=== PATIENT | male | born 1960 | race Caucasian/White ===

== ENCOUNTER → 2022-12-08 | Outpatient (CLI) | payer BC ==
[2022-12-08 16:09] LABS: BASOPHILS % (AUTO) 1 % (0-10); EOSINOPHILS # (AUTO) 0.1 10^3/uL (0.0-0.3); EOSINOPHILS % (AUTO) 1 % (0-10); HEMATOCRIT 41 % (40-54); HEMOGLOBIN 13.6 g/dL (13.3-17.7); LYMPHOCYTES # (AUTO) 1.5 10^3/uL (1.0-4.0); LYMPHOCYTES % (AUTO) 23 % (12-44); MEAN CORPUSCULAR HEMOGLOBIN 29 pg (25-34); MEAN CORPUSCULAR HGB CONC 34 g/dL (32-36); MEAN CORPUSCULAR VOLUME 86 fL (80-99); MEAN PLATELET VOLUME 10.6 fL (9.0-12.2); MONOCYTES # (AUTO) 0.6 10^3/uL (0.0-1.0); MONOCYTES % (AUTO) 9 % (0-12); NEUTROPHILS # (AUTO) 4.1 10^3/uL (1.8-7.8); NEUTROPHILS % (AUTO) 65 % (42-75); PLATELET COUNT 245 10^3/uL (130-400); WHITE BLOOD COUNT 6.3 10^3/uL (4.3-11.0)
[2022-12-08 16:13] LABS: ALBUMIN 4.3 GM/DL (3.2-4.5); CHLORIDE 105 MMOL/L (98-107); POTASSIUM 4.2 MMOL/L (3.6-5.0); SODIUM 139 MMOL/L (135-145)
[2022-12-08 16:14] LABS: CALCIUM 9.5 MG/DL (8.5-10.1)
[2022-12-08 16:15] LABS: GLUCOSE 113 MG/DL (70-105)
[2022-12-08 16:16] LABS: TOTAL PROTEIN 7.7 GM/DL (6.4-8.2)
[2022-12-08 16:17] LABS: BILIRUBIN,TOTAL 0.3 MG/DL (0.1-1.0); CARBON DIOXIDE 26 MMOL/L (21-32)
[2022-12-08 16:19] LABS: ALKALINE PHOSPHATASE 80 U/L (40-136); CREATININE SERUM 0.94 MG/DL (0.60-1.30); GFR ESTIMATED 91
[2022-12-08 16:20] LABS: BUN/CREATININE RATIO 16
[2022-12-08 16:22] LABS: ALANINE AMINOTRANSFERASE 26 U/L (0-55); CREATINE KINASE 164 U/L (30-200)
[2022-12-08 16:44] LABS: FREE T4 (FREE THYROXINE) 0.86 NG/DL (0.70-1.48)
== END ==
LOC: LAB 15:47
PROVIDERS: ATTEND Nurse Practitioner Family
DX: Z12.5 Encounter for screening for malignant neoplasm of prostate (principal); R42 Dizziness and giddiness; R07.9 Chest pain, unspecified
CPT/HCPCS: 36415; 80053; 82550; 84153; 84439; 84443; 84484; 85025; 93005

== ENCOUNTER 2023-01-06 10:47 | Outpatient (CLI) | payer BC ==
[~2023-01-06] VITALS: Ht 177.8 cm; Wt 69.0 kg
[2023-01-06] MEDS ORDERED: MULT-1136 PO (14:22)
[2023-01-06] MEDS ORDERED: QUIN324C4 PO (14:22)
== END 2023-01-06 14:29 | disposition home or self-care (01) ==
LOC: PREOP 10:47
PROVIDERS: ATTEND Surgery
DX: Z01.818 Encounter for other preprocedural examination (principal)

== ENCOUNTER 2023-01-13 12:53 | Day surgery (SDC) | payer BC ==
[~2023-01-13] VITALS: Ht 177.8 cm; Wt 69.0 kg
[2023-01-13] VITALS (7 sets, daily range): BP systolic 85–108; BP diastolic 50–75
[~2023-01-13 12:53] MED LIST: MULT-1136 PO; QUIN324C4 PO
[2023-01-13] MEDS ORDERED: LACTATED RINGERS 1,000 ML 1,000 ML IV STA (12:57)
[2023-01-13] MEDS ORDERED: HURRICAINE EXT TUBE (BENZOCAINE) XX PRN (13:00)
[2023-01-13] MEDS ORDERED: LIDOCAINE JELLY 2% 6 ML SYRINGE MM PRN (13:00)
--- NOTE | 2023-01-13 13:04 | Progress Note-Pre Operative ---
Pre-Operative Progress Note Date of Available H&P: Jan 13, 2023 Date H&P Reviewed: Jan 13, 2023 Time H&P Reviewed: 13:00 History & Physical: No changes noted Pre-Operative Diagnosis: GERD, cough, screening GUICHO CABRERA MD Jan 13, 2023 13:04
--- NOTE | 2023-01-13 13:05 | Discharge Inst-Surgical ---
D/C Lap Instructions-DEBORAH Follow Up Activity as tolerated High Fiber Diet 25g or more per day Avoid Alcohol, Caffeine, Spicy [place] and Acid foods. Drink 64 fluid oz or more of fluids per day. Symptoms to Report: Fever over 101 degree F, Nausea/Vomiting If any problems/questions: Contact your physician or go to Emergency Room GUICHO CABRERA MD Jan 13, 2023 13:05
[2023-01-13] MEDS ORDERED: ONDANSETRON 4 MG ORAL DISSOLVE TABLET PO PRN (13:15)
[2023-01-13] MEDS ORDERED: ONDANSETRON INJECTION 4 MG/2 ML (SDV) IVP PRN (13:15)
[2023-01-13] MEDS ORDERED: LIDOCAINE JELLY 2% 6 ML SYRINGE ONE (13:18)
[2023-01-13] MEDS ORDERED: MIDAZOLAM INJ 2 MG/2 ML VIAL ONE (14:24)
--- NOTE | 2023-01-13 15:10 | Anesthesia-General Post-Op ---
MAC Patient Condition Mental Status/LOC: Same as Preop Cardiovascular: Satisfactory Nausea/Vomiting: Absent Respiratory: Satisfactory Pain: Controlled Complications: Absent Post Op Complications Complications None Follow Up Care/Instructions Patient Instructions None needed. Anesthesiology Discharge Order Discharge Order Patient is doing well, no complaints, stable vital signs, no apparent adverse anesthesia problems. No complications reported per nursing. KAMALA SANTOS CRNA Jan 13, 2023 15:10
--- NOTE | 2023-01-13 15:53 | Progress Note-Post Operative ---
Post-Operative Progess Note Surgeon (s)/Grade And Center Marker (s) Surgeon GUICHO CABRERA MD Grade And Center Marker: none Pre-Operative Diagnosis GERD, cough, screening Post-Operative Diagnosis reflux esophagitis(grade B), mild dist esoph stricture, small HH(1.5cm), mild-mod gastritis. mild sigmoid diverticulosis. Procedure & Operative Findings Date of Procedure 01/13/23 Procedure Performed/Findings EGD with bx and balloon dilatation. Colonoscopy. Anesthesia Type mac Estimated Blood Loss Estimated blood loss (mL): minimal Specimens/Packing Specimens Removed ge jxn, antrum GUICHO CABRERA MD Jan 13, 2023 15:53
--- NOTE | 2023-01-13 23:42 | OPERATIVE REPORT ---
DATE OF SERVICE: 01/13/2023 ATTENDING PRIMARY PHYSICIAN: Liss Miranda MD PREOPERATIVE DIAGNOSIS: Screening colonoscopy, gastroesophageal reflux disease with chronic cough. POSTOPERATIVE DIAGNOSES: Reflux esophagitis, Ben[place] grade B with a mild distal esophageal stricture, small hiatal hernia, 1.5 cm in size, moderate gastritis, no distal obstructions, mild sigmoid diverticulosis. Normal prostate gland. PROCEDURE: EGD with biopsy and balloon dilatation. Colonoscopy. SURGEON: Guicho Cabrera MD ANESTHESIA: Monitored anesthesia care. ESTIMATED BLOOD LOSS: Minimal. FINDINGS: Reflux esophagitis, Benham grade B with a mild distal esophageal stricture, small hiatal hernia, 1.5 cm in size, moderate gastritis, no distal obstructions, mild sigmoid diverticulosis. Normal prostate gland. DISPOSITION: The patient tolerated the procedure well. INDICATIONS: The patient is a 62-year-old male referred over to us for screening colonoscopy. He has not had a colonoscopy up to this point in his life. He does not report any major issues with diarrhea nor constipation as well as no red blood per rectum, nor any dark tarry stools. He also does not report any family history of colon cancer. In the past 3 months, he has also noticed some hoarseness as well as a nonproductive cough during the day. He states that he has had a history of gastroesophageal reflux disease and was recently started on an acid reduction medication; however, states that this has not changed his symptoms. He does not report any cough or hemoptysis as well as no nausea, no vomiting as well as no hematemesis, no coffee-ground emesis. DESCRIPTION OF PROCEDURE: The patient was brought to the endoscopy suite and laid in the left lateral decubitus position. After adequate IV pain and sedative medications and monitored anesthesia care, the mouthpiece was applied. The endoscope was placed in the mouth, visualizing the pharynx and hypopharyngeal region. Vocal cords, epiglottis and vallecula identified and appeared to be normal. Endoscope was then gently intubated into the esophageal opening and esophagus insufflated. The endoscope was then gently intubated into the esophageal opening and esophagus insufflated. The endoscope was then advanced into the first, second, third portions of esophagus at the level of the GE junction, reflux esophagitis, Benham grade B identified. There was also a mild distal esophageal stricture identified. There were no ulcerations identified. A biopsy was taken with forceps with visualization of good hemostasis. The endoscope was then advanced into the stomach and endoscope retroflexed, visualizing a small hiatal hernia approximately 1.5 cm in size. There was a [id number] gastritis. No formal ulcerations, polyps or any neoplasms. A biopsy was taken with forceps with visualization of good hemostasis. The endoscope was then advanced through the pylorus and the first and second portion of the duodenum, which appeared normal with no distal obstructions. The balloon was then placed in the stomach and pulled back to the area of the stricture. We then proceeded with dilatation in a graded stepwise fashion from 2, 4, then eventually 6 atmospheres of pressure with 60 seconds in between and once we had 6 atmospheres of pressure, moderate resistance was encountered or 20 mm in luminal diameter and we left this in place for 120 seconds. The balloon was then desufflated and removed with visualization of good hemostasis as well as no mucosal tears. The endoscope was then slowly withdrawn while taking a second look and suctioning of residual air with no additional findings. A digital rectal examination was performed. No significant hemorrhoids identified. Normal sphincter tone was felt and there were no palpable masses. Prostate gland was palpable and appeared normal. The endoscope was then intubated into the anus, rectum gently insufflated. The endoscope was then advanced through the valves of [place] of the rectum with no polyps or any neoplasms identified. Through the sigmoid colon, a very mild sigmoid diverticulosis identified. The endoscope was then advanced through the remainder of the descending, transverse and ascending colon to the cecum, which were normal. There were no polyps or any neoplasms identified throughout the colon or rectum. The endoscope was then slowly withdrawn while taking a second look and suctioning of residual air with no additional findings. The patient tolerated the procedure well. We will recommend the necessary lifestyle and dietary accommodation, which would including small and more frequent meals, avoidance of eating at night as well as head elevation while lying supine. We would also want him to proceed with smoking cessation as well as avoidance of caffeinated beverages, spicy, greasy and acidic foods. We will also start him on omeprazole 40 mg daily. We will also recommend a small and more frequent meals, avoiding to eating at night as well as head elevation while lying supine. We are currently unsure, which acid safety physician he has taken; however, we will also add omeprazole 40 mg daily to be taken at a separate time during the day. We will also recommend a high-fiber diet with addition of a fiber supplement, which should equal or exceed 30 grams daily as well as significant amounts of water to promote soft stools on a daily basis. He is asymptomatic, he does not need another colonoscopy for another 10 years. Job ID: [id number] DocumentID: [id number] Dictated Date: 01/13/2023 15:26:10 Gasket Notcher Date: 01/13/2023 23:40:00 Dictated By: GUICHO CABRERA MD
== END 2023-01-13 16:27 | disposition home or self-care (01) ==
LOC: ENDO 12:53
PROVIDERS: ATTEND Surgery
DX: Z12.11 Encounter for screening for malignant neoplasm of colon (principal); K57.30 Diverticulosis of large intestine without perforation or abscess without bleeding; K21.00 Gastro-esophageal reflux disease with esophagitis, without bleeding; K22.2 Esophageal obstruction; K44.9 Diaphragmatic hernia without obstruction or gangrene; K29.50 Unspecified chronic gastritis without bleeding
CPT/HCPCS: 88305; 88342